=== PATIENT | female | born 1965 | race Caucasian/White ===

== ENCOUNTER 2016-05-29 17:45 | Emergency (ER) | payer BC ==
[2016-05-29] MEDS ORDERED: TRULICITY0.75 MG/0. (17:48)
[2016-05-29] MEDS ORDERED: GLUCOTROL 5M5 MG/TAB PO (17:49)
[2016-05-29] MEDS ORDERED: HYZAAR 50-12.51 EACH (17:50)
[2016-05-29] MEDS ORDERED: PREDNISONE20 M1 PO (19:06)
[2016-05-29] MEDS ORDERED: TESSALON PERLE100 M1 PO (19:31)
== END 2016-05-29 19:42 | disposition home or self-care (01) ==
LOC: ED 17:45
DX: J40 Bronchitis, not specified as acute or chronic (principal); E11.9 Type 2 diabetes mellitus without complications; Z79.84 Long term (current) use of oral hypoglycemic drugs
CPT/HCPCS: J7512

== ENCOUNTER 2017-01-28 20:30 | Emergency (ER) | payer BC ==
[~2017-01-28] VITALS: Ht 152.4 cm; Wt 78.2 kg
[~2017-01-28 20:30] MED LIST: GLUCOTROL 5M5 MG/TAB PO; HYZAAR 50-12.51 EACH; PREDNISONE20 M1 PO; TESSALON PERLE100 M1 PO; TRULICITY0.75 MG/0. SQ
[2017-01-28] MEDS ORDERED: HYZAAR 100-251 EACH PO (20:51)
[2017-01-28] MEDS ORDERED: AMARYL1 M1 PO (20:51)
[2017-01-28] MEDS ORDERED: PREDNISONE20 M1 PO (21:09)
[2017-01-28 21:21] VITALS: BP 132/91
== END 2017-01-28 21:21 | disposition home or self-care (01) ==
LOC: ED 20:30
DX: J06.9 Acute upper respiratory infection, unspecified (principal); E11.9 Type 2 diabetes mellitus without complications; I10 Essential (primary) hypertension; Z88.1 Allergy status to other antibiotic agents; Z88.8 Allergy status to other drugs, medicaments and biological substances
CPT/HCPCS: J7512